=== PATIENT | female | born 1935 | race Caucasian/White ===

== ENCOUNTER → 2020-05-22 12:02 | Outpatient (BNVA) | payer MEDICARE, OTHER, SELFPAY | PROVIDERS: PCP Urology; Visit Provider Emergency Medicine | DX: S62.303A Unspecified fracture of third metacarpal bone, left hand, initial encounter for closed fracture (principal); X58.XXXA Exposure to other specified factors, initial encounter | CPT/HCPCS: 73130 ==

== ENCOUNTER → 2020-05-24 15:58 | Outpatient (BNVA) | payer MEDICARE, MEDICAID, SELFPAY | PROVIDERS: PCP Urology; Referring Provider Emergency Medicine; Visit Provider Specialist | DX: S62.303A Unspecified fracture of third metacarpal bone, left hand, initial encounter for closed fracture (principal); X58.XXXA Exposure to other specified factors, initial encounter | CPT/HCPCS: 73130 ==

== ENCOUNTER 2020-07-06 17:38 | Outpatient (CLI) | payer MEDICARE, MEDICAID, SELFPAY ==
--- NOTE | 2020-07-06 17:46 | XRR_ITS ---
PROCEDURE INFORMATION: Exam: XR Right Hip with Pelvis when Performed Exam date and time: 07/06/2020 5:55 PM Age: 85 years old Clinical indication: Hip pain; Right hip; Additional info: M25.559 - pain in unspecified hip TECHNIQUE: Imaging protocol: XR Right hip with pelvis when performed. Views: 1 view. Total images: 3 COMPARISON: No relevant prior studies available. FINDINGS: Bones/joints: No visible fracture, subluxation, or dislocation. Mild primary osteoarthritis of the hips. Degenerative disease and degenerative disc disease of the visualized lumbosacral spine with scoliosis. Osteopenia/osteoporosis. Soft tissues: Unremarkable for age. Vasculature: Arteriosclerosis. XR/XR hip RT 2-3V wo/w pel* [id number] IMPRESSION: Nonacute.
== END 2020-07-06 17:39 | disposition home or self-care (01) ==
LOC: RAD 17:40
PROVIDERS: PCP Urology; Visit Provider Nurse Practitioner Family
DX: M25.551 Pain in right hip (principal)
CPT/HCPCS: 73502

== ENCOUNTER → 2021-04-01 15:39 | Outpatient (BNVA) | payer MEDICARE, MEDICAID, SELFPAY | PROVIDERS: PCP Urology; Visit Provider Nurse Practitioner Family | DX: R60.9 Edema, unspecified (principal); M79.641 Pain in right hand; M25.531 Pain in right wrist; M19.031 Primary osteoarthritis, right wrist | CPT/HCPCS: 73110; 73130; 84550 ==

== ENCOUNTER 2021-04-05 11:14 | Emergency (ER) | payer MEDICARE, MEDICAID, SELFPAY ==
[2021-04-05 11:35] VITALS: BP 153/83; PULSE 60; RESP 18; TEMP 36.8; O2SAT 97
--- NOTE | 2021-04-05 11:44 | XRR_ITS ---
PROCEDURE INFORMATION: Exam: XR Right Hand Exam date and time: 04/05/2021 11:44 AM Age: 85 years old Clinical indication: Injury or trauma; Swelling (edema); Injury details: Patient is a 85-year-old female comes to the ED with right hand pain and swelling. Patient has a history of rheumatoid arthritis. Patient had a fall approximately 1 week ago. She tripped and lost her balance fell forward and used her right hand to help brace herself. ; Additional info: Right hand swelling and pain after fall TECHNIQUE: Imaging protocol: XR Right hand. Views: 3 or more views. COMPARISON: CR XR hand RT min 3V* [id number] 04/01/2021 3:48 PM FINDINGS: Bones/joints: There is a fracture through the left 5th metacarpal head extending to the MCP joint. No dislocation. There is joint space narrowing of the left 2nd through 4th PIP joints. There is subluxation at the left 3rd PIP joint with gull wing formation and central erosion in the left 3rd proximal phalanx. There is also joint space narrowing in the left 2nd and 5th DIP joints and at the left 1st CMC joint. There is erosive change through the distal left radius. Soft tissues: There is soft tissue swelling of the left 2nd through 5th digits. XR/XR hand RT min 3V* [id number] IMPRESSION: There is a fracture through the left 5th metacarpal head extending to the MCP joint. 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
--- NOTE | 2021-04-05 12:04 | W.ED.EXTPRO ---
HPI - Extremity Problem General: Chief complaint: Extremity Injury, Upper Stated complaint: RIGHT HAND INJURY/SWELLING PAIN Time Seen by Provider: 04/05/21 11:45 History of Present Illness: HPI Narrative: Patient is a 85-year-old female comes to the ED with right hand pain and swelling. Patient has a history of rheumatoid arthritis. Patient had a fall approximately 1 week ago. She tripped and lost her balance fell forward and used her right hand to help brace herself. Patient did not have much pain after fall but a couple days later started developing right hand pain and swelling. The pain and swelling has continued to get worse. She rates the pain a 10 out of 10 and is unable to move her right hand and fingers due to pain. She is only taking some Tylenol to help with pain. Associated symptoms: Deny chest pain, fever(s) or rash Review of Systems Const: Denies: fever(s), chills or fatigue Eyes: Denies: change in vision or eye discomfort ENMT: Denies: throat pain, odynophagia, nasal discharge or nasal congestion Card: Denies: chest pain, palpitations, edema, swelling of feet/ankles, dyspnea on exertion or orthopnea Resp: Denies: dyspnea, productive cough or non-productive cough GI: Denies: abdominal pain, nausea, vomiting, diarrhea, constipation or hematochezia : Denies: flank pain, dysuria or hematuria Musc: Reports: extremity pain (Right hand), extremity swelling (Right hand) and limited range of motion (Fingers of right hand); Denies: neck pain or back pain Skin/Breast: Denies: rash or new lesions Neuro: Denies: headache(s), numbness in extremities or weakness in extremities PFS ED PFSH: Medical History CHF (congestive heart failure) Colon cancer remission 1985 Hypertension RA (rheumatoid arthritis) Type 2 diabetes mellitus Family History Daughter Hypertension Denies family history of Dementia Social History Alcohol intake: never Physical Exam Const: COMMON NORMALS: no acute distress, patient oriented x3 and alert HENMT: COMMON NORMALS: normocephalic HEAD & SCALP: normocephalic MOUTH: Normal oral and palatal mucosa present THROAT: posterior oropharynx normal and uvula midline Neck/C-Spine: COMMON NORMALS: supple GENERAL: Yes normal visual inspection Resp: COMMON NORMALS: normal respiratory effort, No retractions, No use of accessory muscles and clear to auscultation bilaterally AUSCULTATION: clear to auscultation bilaterally Cardio: COMMON NORMALS: regular rate, regular rhythm, S1 normal heart sound present, S2 normal heart sound present, No gallops present (Cardio), No clicks present (Cardio), No murmurs present (Cardio) and Peripheral pulses 2+ throughout RATE: regular rate RHYTHM: regular rhythm HEART SOUNDS: S1 normal heart sound present and S2 normal heart sound present PERIPHERAL PULSES: Peripheral pulses 2+ throughout GI: COMMON NORMALS: Normal to inspection, nondistended, normoactive bowel sounds present, Soft to palpation, non-tender and no masses PALPATION: Yes Soft to palpation : COMMON NORMALS: Yes no CVA tenderness BLADDER/KIDNEY EXAM: Yes no CVA tenderness Back/Pelvis: COMMON NORMALS: no CVA tenderness Extremity: RIGHT UPPER EXTREMITY: Yes hand & digits Right hand and digits: Yes inspection (Erythema and significant swelling of right hand and digits), Yes palpation (Tenderness throughout right hand), Yes ROM exam (Limited due to pain) and Yes neurovascular exam (Intact) OTHER: Right hand findings suggestive of gout versus fractures. Neuro: COMMON NORMALS: patient oriented x3 and moves all extremities SENSORIUM/ORIENTATION: Yes alert Skin: GENERAL SKIN EXAM: dry skin Course Vital Signs: Vital signs: Vital Signs Temperature 98 F 04/05/21 13:40 Pulse Rate 60 04/05/21 13:40 Respiratory Rate 16 04/05/21 13:40 Blood Pressure 164/69 04/05/21 13:40 Pulse Oximetry 97 04/05/21 13:40 MDM - Extremity (Nontraumatic) MDM Narrative: Medical decision making narrative: Patient is an 85-year-old female comes to the ED with right hand swelling and pain. Patient had a fall approximately 10 days ago and has had increased right hand pain and swelling. She was seen at [facility] in [place] for same complaint and they performed an x-ray of patient's right hand and wrist and no acute fractures were seen. They checked her uric acid level there and it was elevated at 9.2 April 01. She was diagnosed with possible gout and discharged home. Patient is still having pain and swelling, so she came to the ED for reevaluation. Her right hand has the appearance of gout with swelling, erythema, warmth and tenderness on the dorsal aspect of hand. Denies any reinjury right hand. X-ray of right hand was done here in the ED and I evaluated x-ray and compared it to the x-ray done on April 01 and I saw no acute fractures or change comparing April 01 x-ray with today's x-ray. Patient was discharged and diagnosed with gout. She was sent home with a prescription for dose of colchicine and hydrocodone for pain. The radiology report came back and show that a fracture to the fifth metacarpal head was seen. Today 04/06/21, I contacted Veronica Castellanos and told her about the fracture that was seen on the x-ray report. I told patient that she will need to have an ulnar gutter splint placed. She is going to contact [facility] in [place] to see if they performed the splint procedure, and if not they were told to come here to the ED for splint placement. I called Veronica Castellanos back approximately 45 minutes after first conversation to check and see if they found out if [facility] can do splint placement. She said the [facility] in [place] could apply the splint and they will go there today to get splint applied. I also informed Veronica Castellanos that I placed an order with case management for patient be referred to orthopedic doctor for reevaluation of metacarpal fracture. Patient understood and agreed with plan. Imaging Data^: Xray Ortho: Attestation: I personally reviewed and interpreted this imaging study as follows: My impression: Right hand x-ray-no acute fracture seen. Pending final radiology report. Radiologist's impression: [id number] [place], [place] [address]FLmo ReportSigned with Addenda Patient: Bere Castellanos #: [id number]: 6Acct#:[id number]/Sex: 85 / FADM Date: 04/05/21Loc: ERRoom/Bed:Attending Dr: Ordering Provider/Ordering MD: Dominik De Jesus Date of Service: 04/05/21 Procedure(s): XR hand RT min 3V* [id number] Accession Number(s): [id number] Report Number: [id number] ADDENDUM XR/XR hand RT min 3V* [id number] CORRECTION: These are images of the RIGHT hand. Study was mislabeled as left hand There is a fracture of the RIGHT 5th metacarpal head which is unchanged when compared with 04/01/2021. Deformity of the right 2nd metacarpal head is also unchanged. Addendum Dictated By: Karl Lopez MDAddendum Signed By: Karl Lopez MDSigned Date/Time:04/05/21 1443Addendum Cosigned By: PROCEDURE INFORMATION: Exam: XR Right Hand Exam date and time: 04/05/2021 11:44 AM Age: 85 years old Clinical indication: Injury or trauma; Swelling (edema); Injury details: Patient is a 85-year-old female comes to the ED with right hand pain and swelling. Patient has a history of rheumatoid arthritis. Patient had a fall approximately 1 week ago. She tripped and lost her balance fell forward and used her right hand to help brace herself. ; Additional info: Right hand swelling and pain after fall TECHNIQUE: Imaging protocol: XR Right hand. Views: 3 or more views. COMPARISON: CR XR hand RT min 3V* [id number] 04/01/2021 3:48 PM FINDINGS: Bones/joints: There is a fracture through the left 5th metacarpal head extending to the MCP joint. No dislocation. There is joint space narrowing of the left 2nd through 4th PIP joints. There is subluxation at the left 3rd PIP joint with gull wing formation and central erosion in the left 3rd proximal phalanx. There is also joint space narrowing in the left 2nd and 5th DIP joints and at the left 1st CMC joint. There is erosive change through the distal left radius. Soft tissues: There is soft tissue swelling of the left 2nd through 5th digits. XR/XR hand RT min 3V* [id number] IMPRESSION: There is a fracture through the left 5th metacarpal head extending to the MCP joint. 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 Dictated By:Karl Lopezigned By:Karl Lopez MDSigned Date/Time:04/05/21 1441DD/ 1439 Discharge Plan Discharge Patient Disposition: Home Clinical Impression: Fracture of metacarpal Qualifiers: Encounter type: initial encounter Metacarpal bone: fifth Fracture type: closed Metacarpal location: base Fracture alignment: nondisplaced Laterality: right Qualified Code(s): S62.346A - Nondisplaced fracture of base of fifth metacarpal bone, right hand, initial encounter for closed fracture Acute gout of hand Qualifiers: Gout etiology: unspecified cause Laterality: right Qualified Code(s): M10.9 - Gout, unspecified Condition: Stable Prescriptions: No Action Xarelto 20 mg tablet 20 mg PO DAILY RF: 0 clonazepam 0.5 mg tablet 1 mg PO BEDTIME PRN (Reason: insomnia) RF: 0 pantoprazole 40 mg tablet,delayed release (DR/EC) 40 mg PO BID RF: 0 mecobalamin (vitamin B12) 1,000 mcg tablet,disintegrating 1,000 mcg sublingual DAILY RF: 0 insulin asp prt-insulin aspart [Novolog Mix 70-30 U-100 Insuln] 100 unit/mL (70-30) solution 20 unit SUBCUT DAILY RF: 0 allopurinol 100 mg tablet 200 mg PO DAILY Qty: 60 RF: 0 furosemide 40 mg tablet 40 mg PO DAILY MDD see pharmacy comment RF: 0 baclofen 10 mg tablet 10 mg PO TID PRN (Reason: Pain) RF: 0 Nyamyc 100,000 unit/gram powder 1 applic TOPICAL TID RF: 0 Discharge Orders: Discharge ED (Routine); Ordered 04/05/21 Ordered By: Dominik De Jesus Referrals: Juan Carlos Hubbard MD [Primary Care Provider] - Discharge Diet: Regular Discharge Activity: Increase activity as tolerated Patient Instructions: Acute Gouty Arthritis (ED), Opioid Safety Activity Restrictions/Additional Instructions: Follow-up with medical provider as directed in 7 to 10 days reevaluation. Take the prescribed colchicine approximately 1 hour after the initial dose of colchicine here in the ED. Take medications as prescribed. Continue taking your prescribed steroid daily tomorrow but continue watching blood sugars closely. Return to the ER or your medical provider if condition worsens. Please read and understand discharge instructions. Thank you for choosing [facility] for your healthcare needs today. Please realize this is an emergency room and that we are providing you with a medical screening exam and this may not be complete and all inclusive of all the testing and or work up that you may need to determine your ailment or severity of your illness. It is very important that you follow up as instructed or that you return to the Emergency Department should you have concerns or if your condition changes or worsens in any way. Coding Level of Care Code ED Stringing Machine Tender for Max Fwhermilo Exam Comprehensive
[2021-04-05 12:16] VITALS: BP 157/60; PULSE 60; RESP 18; TEMP 36.8; O2SAT 98
[2021-04-05 12:17] VITALS: PULSE 60
[2021-04-05] MEDS: HYDROcodone-acetaminophen 5-325 mg Tablet 1 TAB PO (12:23)
[2021-04-05 13:04] VITALS: BP 156/61; PULSE 60; RESP 16; TEMP 36.5; O2SAT 96
[2021-04-05] MEDS: colchicine 0.6 mg Tablet 1.2 MG PO (13:38)
[2021-04-05 13:40] VITALS: BP 164/69; PULSE 60; RESP 16; TEMP 36.6; O2SAT 97
--- NOTE | 2021-04-06 10:00 | DCPLANNER ---
physician relations manager had message to schedule a follow up appointment for patient with ortho. physician relations manager called the ortho clinic, spoke with Debi, gave clinic patients information. physician relations manager was told that patients information would be printed and reviewed. Clinic will call patient with appointment information.
--- NOTE | 2021-04-07 15:32 | DCPLANNER ---
Patient had a follow up appointment scheduled for 04.07.[address] Ramirez at [facility] - patient did attend appointment.
== END 2021-04-05 13:47 | disposition home or self-care (01) ==
PROVIDERS: Emergency Provider Physician Assistant; PCP Urology
DX: S62.346A Nondisplaced fracture of base of fifth metacarpal bone, right hand, initial encounter for closed fracture (principal); M10.9 Gout, unspecified; Z79.4 Long term (current) use of insulin; I11.0 Hypertensive heart disease with heart failure; I50.9 Heart failure, unspecified; Z85.038 Personal history of other malignant neoplasm of large intestine; E11.9 Type 2 diabetes mellitus without complications; W19.XXXA Unspecified fall, initial encounter
CPT/HCPCS: 73130; 96372; 99283; J2930

== ENCOUNTER 2021-04-07 11:51 | Outpatient (CLI) | payer MEDICARE, MEDICAID, SELFPAY | END 2021-04-07 11:52 | disposition home or self-care (01) | LOC: SPT 11:52 | PROVIDERS: PCP Urology; Visit Provider Orthopaedic Surgery | DX: Z46.89 Encounter for fitting and adjustment of other specified devices (principal); M19.041 Primary osteoarthritis, right hand; M25.441 Effusion, right hand | CPT/HCPCS: L3908 ==

== ENCOUNTER → 2021-04-25 07:39 | Outpatient (BNVA) | payer MEDICARE, MEDICAID, SELFPAY | PROVIDERS: PCP Urology; Visit Provider Nurse Practitioner Family | DX: M10.9 Gout, unspecified (principal) | CPT/HCPCS: 84550 ==

== ENCOUNTER → 2021-05-16 14:42 | Outpatient (BNVA) | payer MEDICARE, MEDICAID, SELFPAY | PROVIDERS: PCP Urology; Visit Provider Nurse Practitioner Family | DX: M10.9 Gout, unspecified (principal) | CPT/HCPCS: 84550 ==

== ENCOUNTER → 2021-05-30 15:25 | Outpatient (BNVA) | payer MEDICARE, MEDICAID, SELFPAY | PROVIDERS: PCP Urology; Visit Provider Family Medicine | DX: R30.0 Dysuria (principal); E11.65 Type 2 diabetes mellitus with hyperglycemia; Z79.4 Long term (current) use of insulin; M79.641 Pain in right hand; I50.9 Heart failure, unspecified; M10.9 Gout, unspecified | CPT/HCPCS: 81000 ==

== ENCOUNTER → 2021-06-07 11:18 | Outpatient (BNVA) | payer MEDICARE, MEDICAID, SELFPAY | PROVIDERS: PCP Urology; Visit Provider Nurse Practitioner Family | DX: S62.303A Unspecified fracture of third metacarpal bone, left hand, initial encounter for closed fracture (principal); X58.XXXA Exposure to other specified factors, initial encounter; R30.0 Dysuria; M10.9 Gout, unspecified; R93.89 Abnormal findings on diagnostic imaging of other specified body structures; R39.9 Unspecified symptoms and signs involving the genitourinary system; Z68.41 Body mass index [BMI] 40.0-44.9, adult | CPT/HCPCS: 73130; 81000; 84550 ==

== ENCOUNTER → 2021-06-24 11:11 | Outpatient (BNVA) | payer MEDICARE, SELFPAY | PROVIDERS: PCP Urology; Visit Provider Nurse Practitioner Family | DX: R82.90 Unspecified abnormal findings in urine (principal) | CPT/HCPCS: 81000; 87077; 87086; 87184 ==

== ENCOUNTER → 2021-07-01 10:02 | Outpatient (BNVA) | payer MEDICARE, SELFPAY | PROVIDERS: PCP Urology; Visit Provider Nurse Practitioner Family | DX: E55.9 Vitamin D deficiency, unspecified (principal); I10 Essential (primary) hypertension; E11.65 Type 2 diabetes mellitus with hyperglycemia; Z79.4 Long term (current) use of insulin; E53.8 Deficiency of other specified B group vitamins; M10.9 Gout, unspecified | CPT/HCPCS: 80053; 80061; 82306; 82607; 83036; 84550; 85025 ==

== ENCOUNTER 2021-07-13 03:04 | Outpatient (RCR) | payer MEDICARE, SELFPAY | END 2021-07-15 23:59 | disposition home or self-care (01) | LOC: GPT 03:04 | PROVIDERS: PCP Urology; Referring Provider Orthopaedic Surgery; Visit Provider Orthopaedic Surgery | DX: M25.511 Pain in right shoulder (principal) | CPT/HCPCS: 97110; 97162 ==

== ENCOUNTER 2021-07-16 06:00 | Outpatient (RCR) | payer MEDICARE, SELFPAY | END 2021-08-15 23:59 | disposition home or self-care (01) | LOC: GPT 06:00 | PROVIDERS: PCP Urology; Referring Provider Orthopaedic Surgery; Visit Provider Orthopaedic Surgery | DX: M25.511 Pain in right shoulder (principal) | CPT/HCPCS: 97110; 97140; G0283 ==

== ENCOUNTER → 2021-07-27 11:16 | Outpatient (BNVA) | payer MEDICARE, SELFPAY | PROVIDERS: PCP Urology; Visit Provider Family Medicine | DX: N39.0 Urinary tract infection, site not specified (principal); R35.0 Frequency of micturition | CPT/HCPCS: 81000 ==

== ENCOUNTER → 2021-08-04 14:49 | Outpatient (BNVA) | payer MEDICARE, SELFPAY | PROVIDERS: PCP Urology; Visit Provider Nurse Practitioner Family | DX: R05.9 Cough, unspecified (principal); J02.9 Acute pharyngitis, unspecified | CPT/HCPCS: 87635 ==

== ENCOUNTER 2021-09-05 10:10 | Emergency (ER) | payer MEDICARE, SELFPAY ==
[2021-09-05 10:17] VITALS: BP 183/75; PULSE 60; RESP 18; TEMP 36.8; O2SAT 98; BMI 41.0
--- NOTE | 2021-09-05 10:22 | XR_ITS ---
WS: [id number] Exam: XR hip RT 2-3V wo/w pel* [id number] Date/Time of Exam: 09/05/2021 10:23 AM Reason For Exam: pain No acute fracture or dislocation. Osteopenia. Mild degenerative thinning of the joint compartment. XR/XR hip RT 2-3V wo/w pel* [id number] IMPRESSION: 1. Degenerative changes and osteopenia. 2. No fracture or dislocation.
--- NOTE | 2021-09-05 10:22 | XR_ITS ---
WS: [id number] Exam: XR lumbar spine 2-3V* [id number] Date/Time of Exam: 09/05/2021 10:23 AM Reason For Exam: pain There is a compression fracture of the upper end plate of L1 with about 30% loss of vertebral height. Fracture age is indeterminate. No other obvious fracture. There is levoscoliosis noted. Facet arthro laxmi at all levels. Mild spondylosis. Aortoiliac atherosclerosis. XR/XR lumbar spine 2-3V* [id number] IMPRESSION: 1. Compression fracture of the upper endplate of L1 with about 30% loss of vert ebral height and no obvious retropulsion. Fracture age is indeterminate. 2. Moderately advanced degenerative facet change and levoscoliosis.
--- NOTE | 2021-09-05 10:22 | W.ED.BACK ---
HPI - Back Pain/Injury General: Chief Complaint: Back Pain/Injury Stated Complaint: BACK PAIN INCREASED WITH MOVEMENT Time Seen by Provider: 09/05/21 10:18 Source: patient Mode of arrival: ambulatory History of Present Illness: 86-year-old female presents emergency room with complaint of back pain of the last couple of days progressively worsening she has difficult time standing and walking. She lives at home alone. She no trauma. Patient has not had any urinary retention or fecal incontinence. Normal sensation lower extremities but she does have pain in the lower legs. MD elicited complaint: back pain Onset (ago): day(s) Timing: constant Severity: severe Quality: sharp Location: lumbar spine Radiation: left upper leg and right upper leg Exacerbating factors: sitting upright and walking Relieving factors: none and supine Associated symptoms: Deny abdominal pain, arthralgias, chills, change in bowel habits, difficulty walking, dysuria, fatigue, fecal incontinence, fever(s), hematuria, myalgias, nausea, numbness, syncope, tingling/numbness/burning, urinary frequency, urinary urgency, vomiting or weakness Review of Systems Const: Denies: fever(s), chills or fatigue ENMT: Denies: throat pain, ear or mastoid pain, nasal discharge or nasal congestion Card: Denies: syncope Resp: Denies: dyspnea, productive cough or non-productive cough GI: Denies: abdominal pain, nausea, vomiting, fecal incontinence or change in bowel habits : Denies: dysuria, urinary urgency or hematuria Skin/Breast: Denies: rash or pruritus Neuro: Denies: difficulty walking PFSH ED PFSH: Medical History Anemia CHF (congestive heart failure) Colon cancer remission 1985 Hypertension RA (rheumatoid arthritis) Type 2 diabetes mellitus Family History Daughter Hypertension Denies family history of Dementia Social History Smoking and tobacco status: never smoked Alcohol intake: never Physical Exam Const: COMMON NORMALS: no acute distress GENERAL APPEARANCE: cooperative and comfortable ORIENTATION/CONSCIOUSNESS: Yes awake, Yes oriented to person, Yes oriented to place and Yes oriented to time HENMT: COMMON NORMALS: normocephalic, atraumatic and hearing grossly normal bilaterally HEAD & SCALP: normocephalic and atraumatic Neck/C-Spine: COMMON NORMALS: no JVD Resp: COMMON NORMALS: normal respiratory effort, No retractions, No use of accessory muscles and clear to auscultation bilaterally AUSCULTATION: clear to auscultation bilaterally Cardio: COMMON NORMALS: no JVD, regular rate, regular rhythm and No murmurs present (Cardio) RATE: regular rate RHYTHM: regular rhythm GI: COMMON NORMALS: Soft to palpation and No hepatosplenomegaly present AUSCULTATION: Yes normoactive bowel sounds PALPATION: Yes Soft to palpation, No Tenderness to palpation present (GI), No Guarding due to palpation present (GI) and Yes No hepatosplenomegaly present Extremity: COMMON NORMALS: normal to inspection, capillary refill normal, no clubbing, cyanosis or edema, no calf tenderness and no pedal edema Neuro: SENSORIUM/ORIENTATION: Yes oriented to person, Yes oriented to place and Yes oriented to time Skin: COMMON NORMALS: no rashes or lesions noted GENERAL SKIN EXAM: no rashes or lesions noted Course Vital Signs: Vital signs: Vital Signs Temperature 98.2 F 09/05/21 10:17 Pulse Rate 63 09/05/21 12:58 Respiratory Rate 18 09/05/21 12:58 Blood Pressure 183/75 09/05/21 12:58 Pulse Oximetry 98 09/05/21 12:58 MDM - Back Pain/Injury Medical Decision Making L1 compression fracture. Patient would ask like to go the snf but at this point really cannot get her qualified at most we can do is an observation admission for pain control. After discussing things with her we ultimately went with a TSLO brace as well as arranging for home health. Will recheck her condition with your primary care doctor within the next week. Any worsening or change return. Physical therapy demonstrated how to use T SLO brace and walker. Patient able to ambulate with a walker at the bedside without difficulty. Medical Records I reviewed the patient's medical records. Labs I reviewed the patient's lab results. Radiology Impressions Hip/Pelvis X-Ray 09/05/21 10:22 IMPRESSION: 1. Degenerative changes and osteopenia. 2. No fracture or dislocation. Lumbar Spine X-Ray 09/05/21 10:22 IMPRESSION: 1. Compression fracture of the upper endplate of L1 with about 30% loss of vertebral height and no obvious retropulsion. Fracture age is indeterminate. 2. Moderately advanced degenerative facet change and levoscoliosis. Discharge Plan Discharge Patient Disposition: Home Clinical Impression: Compression fx, lumbar spine Condition: Stable Prescriptions: New hydrocodone-acetaminophen 7.5-325 mg tablet 1 tab PO Q6H PRN (Reason: pain) Qty: 30 0RF No Action mecobalamin (vitamin B12) 1,000 mcg tablet,disintegrating 1,000 mcg sublingual DAILY 0RF Rx Instructions: place tablet under tongue and allow to dissolve for at least30 secs before swallowing (DME) cock up splint See Rx Instructions .Route .MEDSUPPLY Qty: 1 0RF Rx Instructions: As directed (DME) blood-glucose meter Kit See Rx Instructions .Route Qty: 1 0RF Rx Instructions: As directed probenecid 500 mg tablet 500 mg PO BID 0RF trazodone 50 mg tablet 25 mg PO DAILY Qty: 30 0RF Xarelto 20 mg tablet See Rx Instructions .ROUTE .COMPLEX Qty: 90 3RF Dose Instruction: TAKE ONE TABLET BY MOUTH EVERY EVENING Rx Instructions: TAKE ONE TABLET BY MOUTH EVERY EVENING insulin asp prt-insulin aspart [Novolog Mix 70-30 U-100 Insuln] 100 unit/mL (70-30) solution 22 unit SUBCUT DAILY Qty: 10 0RF hydrocodone-acetaminophen 5-325 mg tablet 1 tab PO Q6H PRN (Reason: pain) 5 Days Qty: 20 0RF pantoprazole 40 mg tablet,delayed release (DR/EC) See Rx Instructions .ROUTE .COMPLEX Qty: 60 11RF Dose Instruction: TAKE ONE TABLET BY MOUTH TWICE A DAY FOR STOMACH; NEW HIGHER DOSAGE OF 10.14.19 Rx Instructions: TAKE ONE TABLET BY MOUTH TWICE A DAY FOR STOMACH; NEW HIGHER DOSAGE OF 10.14.19 baclofen 10 mg tablet 10 mg PO TID PRN (Reason: Pain) Qty: 90 11RF Nyamyc 100,000 unit/gram powder See Rx Instructions .ROUTE .COMPLEX Qty: 60 3RF Dose Instruction: APPLY TOPICALLY THREE TIMES A DAY TO SKIN FOLD AREAS FOR YEAST INFECTIONS Rx Instructions: APPLY TOPICALLY THREE TIMES A DAY TO SKIN FOLD AREAS FOR YEAST INFECTIONS meloxicam 15 mg tablet 15 mg PO DAILY Qty: 30 5RF cholecalciferol (vitamin D3) 1,250 mcg (50,000 unit) capsule 50,000 unit PO .weekly 56 Days Qty: 8 0RF furosemide 40 mg tablet See Rx Instructions .ROUTE .COMPLEX Qty: 30 3RF Dose Instruction: TAKE ONE TABLET BY MOUTH ONCE DAILY Rx Instructions: TAKE ONE TABLET BY MOUTH ONCE DAILY Discharge Orders: Discharge ED (Routine); Ordered 09/05/21 Ordered By: Travis Larsen Referrals: Juan Carlos Hubbard MD [Physician] - Discharge Diet: Usual diet Discharge Activity: Limit activity as instructed Activity Restrictions/Additional Instructions: Case management make arrangements for you to follow-up with Dr. Ramirez for the compression fracture. Also make arrangements for home health. Coding Level of Care Code ED Commercial Loan Collection Officer for Max Gibson
--- NOTE | 2021-09-05 11:01 | PC.NURSE ---
Patient arrived to Ed with main complaint of bilateral back pain. Patient stated that pain is a 10 on a scale from 1 to 10. Patient also stated she has mild lower extremity weakness bilaterally. Patient does not appear to be in any form of respiratory distress. Patient is currently in X-ray. continue care
[2021-09-05 11:08] VITALS: BP 183/75; PULSE 63; RESP 18; O2SAT 98
[2021-09-05 12:58] VITALS: BP 183/75; PULSE 63; RESP 18; O2SAT 98
--- NOTE | 2021-09-05 12:59 | PC.NURSE ---
PATIENT MOVED TO -4 TO AWAIT FOR POV FOR DISCHARGE.
--- NOTE | 2021-09-05 14:05 | DCPLANNER ---
Addendum entered by Tamica Pereyra 09/16/21 13:48: Patient had an appointment scheduled but patient cancelled the appointment. Original Note: apparel manager had message to schedule a follow up appointment for patient with ortho. apparel manager called the ortho clinic, spoke with Tiffany, gave clinic patients information. apparel manager was told that patients information would be printed and reviewed. Clinic will call patient with appointment information.
== END 2021-09-05 14:05 | disposition home or self-care (01) ==
PROVIDERS: Emergency Provider Family Medicine
DX: S32.018A Other fracture of first lumbar vertebra, initial encounter for closed fracture (principal); Z79.4 Long term (current) use of insulin; I11.0 Hypertensive heart disease with heart failure; I50.9 Heart failure, unspecified; Z85.038 Personal history of other malignant neoplasm of large intestine; E11.9 Type 2 diabetes mellitus without complications; X58.XXXA Exposure to other specified factors, initial encounter
CPT/HCPCS: 72100; 73502; 97116; 97760; 99283; L0456

== ENCOUNTER → 2021-10-10 10:13 | Outpatient (BNVA) | payer MEDICARE, SELFPAY | PROVIDERS: Visit Provider Nurse Practitioner Family | DX: R82.90 Unspecified abnormal findings in urine (principal) | CPT/HCPCS: 81003; 87086 ==

== ENCOUNTER → 2021-10-26 15:48 | Outpatient (BNVA) | payer MEDICARE, SELFPAY | PROVIDERS: Visit Provider Nurse Practitioner Family | DX: N39.0 Urinary tract infection, site not specified (principal) | CPT/HCPCS: 81003 ==

== ENCOUNTER → 2021-12-22 11:02 | Outpatient (BNVA) | payer MEDICARE, SELFPAY | PROVIDERS: Visit Provider Family Medicine | DX: R30.0 Dysuria (principal) | CPT/HCPCS: 81003 ==

== ENCOUNTER → 2022-01-09 11:20 | Outpatient (BNVA) | payer MEDICARE, SELFPAY | PROVIDERS: Visit Provider Family Medicine | DX: E11.65 Type 2 diabetes mellitus with hyperglycemia (principal); Z79.4 Long term (current) use of insulin | CPT/HCPCS: 83036 ==

== ENCOUNTER → 2022-02-22 09:20 | Outpatient (BNVA) | payer MEDICARE, SELFPAY | PROVIDERS: Visit Provider Family Medicine | DX: D64.9 Anemia, unspecified (principal); R82.90 Unspecified abnormal findings in urine; N39.0 Urinary tract infection, site not specified; G47.33 Obstructive sleep apnea (adult) (pediatric); E11.65 Type 2 diabetes mellitus with hyperglycemia; Z79.4 Long term (current) use of insulin; I50.9 Heart failure, unspecified | CPT/HCPCS: 81003; 85025; 87077; 87086; 87184 ==

== ENCOUNTER → 2022-05-01 11:09 | Outpatient (BNVA) | payer MEDICARE, SELFPAY | PROVIDERS: Visit Provider Family Medicine | DX: Z23 Encounter for immunization (principal); R35.0 Frequency of micturition; E11.65 Type 2 diabetes mellitus with hyperglycemia; Z79.4 Long term (current) use of insulin; L03.90 Cellulitis, unspecified; N39.0 Urinary tract infection, site not specified; M10.9 Gout, unspecified | CPT/HCPCS: 81003; 83036; 84550; 85025 ==

== ENCOUNTER → 2022-08-28 14:45 | Outpatient (BNVA) | payer MEDICARE, SELFPAY | PROVIDERS: Visit Provider Family Medicine | DX: E11.65 Type 2 diabetes mellitus with hyperglycemia (principal); Z79.4 Long term (current) use of insulin; B37.2 Candidiasis of skin and nail; I10 Essential (primary) hypertension | CPT/HCPCS: 83036 ==

== ENCOUNTER → 2022-09-20 17:07 | Outpatient (BNVA) | payer MEDICARE, SELFPAY | PROVIDERS: Visit Provider Family Medicine | DX: I11.0 Hypertensive heart disease with heart failure (principal); I50.9 Heart failure, unspecified | CPT/HCPCS: 80053 ==

== ENCOUNTER → 2023-01-29 10:13 | Outpatient (BNVA) | payer MEDICARE, SELFPAY | PROVIDERS: PCP Family Medicine; Visit Provider Family Medicine | DX: E11.9 Type 2 diabetes mellitus without complications (principal) | CPT/HCPCS: 83036 ==

== ENCOUNTER → 2023-02-22 10:32 | Outpatient (BNVA) | payer MEDICARE, SELFPAY | PROVIDERS: PCP Family Medicine; Visit Provider Family Medicine | DX: R41.82 Altered mental status, unspecified (principal) | CPT/HCPCS: 81003; 87077; 87086; 87184 ==

== ENCOUNTER → 2023-04-16 10:08 | Outpatient (BNVA) | payer MEDICARE, SELFPAY | PROVIDERS: PCP Family Medicine; Visit Provider Family Medicine | DX: M10.9 Gout, unspecified; G47.00 Insomnia, unspecified | CPT/HCPCS: 80053; 84550 ==

== ENCOUNTER → 2023-04-20 13:54 | Outpatient (BNVA) | payer MEDICARE, SELFPAY | PROVIDERS: PCP Family Medicine; Visit Provider Nurse Practitioner Family | DX: M54.50 Low back pain, unspecified (principal); M25.552 Pain in left hip; N39.0 Urinary tract infection, site not specified; R41.82 Altered mental status, unspecified | CPT/HCPCS: 81000 ==

== ENCOUNTER → 2023-05-16 09:26 | Outpatient (BNVA) | payer MEDICARE, SELFPAY | PROVIDERS: PCP Family Medicine; Visit Provider Family Medicine | DX: R06.02 Shortness of breath (principal); I48.20 Chronic atrial fibrillation, unspecified; I10 Essential (primary) hypertension; E11.65 Type 2 diabetes mellitus with hyperglycemia; Z79.4 Long term (current) use of insulin; G47.00 Insomnia, unspecified | CPT/HCPCS: 80048; 83036; 84439; 84443; 85025 ==

== ENCOUNTER → 2023-06-05 10:52 | Outpatient (BNVA) | payer MEDICARE, SELFPAY | PROVIDERS: PCP Family Medicine; Visit Provider Family Medicine | DX: R35.0 Frequency of micturition (principal) | CPT/HCPCS: 81003; 87077; 87086; 87184 ==

== ENCOUNTER → 2023-06-14 09:44 | Outpatient (BNVA) | payer MEDICARE, SELFPAY | PROVIDERS: PCP Family Medicine | DX: M10.9 Gout, unspecified (principal); R60.9 Edema, unspecified | CPT/HCPCS: 80048; 83880; 84550 ==

== ENCOUNTER → 2023-07-20 13:46 | Outpatient (BNVA) | payer MEDICARE, SELFPAY | PROVIDERS: PCP Family Medicine; Visit Provider Nurse Practitioner Family | DX: R31.9 Hematuria, unspecified (principal) | CPT/HCPCS: 81000 ==

== ENCOUNTER → 2023-08-14 15:30 | Outpatient (BNVA) | payer MEDICARE, SELFPAY | PROVIDERS: PCP Family Medicine; Visit Provider Nurse Practitioner Family | DX: M10.9 Gout, unspecified (principal) | CPT/HCPCS: 84550 ==

== ENCOUNTER → 2023-09-17 11:00 | Outpatient (BNVA) | payer MEDICARE, SELFPAY | PROVIDERS: PCP Family Medicine; Visit Provider Family Medicine | DX: M1A.0420 Idiopathic chronic gout, left hand, without tophus (tophi) (principal) | CPT/HCPCS: 84550 ==

== ENCOUNTER → 2023-10-17 09:40 | Outpatient (BNVA) | payer MEDICARE, SELFPAY | PROVIDERS: PCP Family Medicine; Visit Provider Family Medicine | DX: M10.9 Gout, unspecified (principal) | CPT/HCPCS: 84550 ==

== ENCOUNTER → 2023-12-24 10:54 | Outpatient (BNVA) | payer MEDICARE, SELFPAY | PROVIDERS: PCP Family Medicine; Visit Provider Nurse Practitioner Family | DX: R30.0 Dysuria (principal) | CPT/HCPCS: 81000; 87086 ==

== ENCOUNTER → 2024-01-04 10:06 | Outpatient (BNVA) | payer MEDICARE, SELFPAY | PROVIDERS: PCP Family Medicine; Visit Provider Nurse Practitioner Family | DX: R10.9 Unspecified abdominal pain (principal); C18.9 Malignant neoplasm of colon, unspecified; G89.29 Other chronic pain; Z85.038 Personal history of other malignant neoplasm of large intestine | CPT/HCPCS: 81000; 87086 ==

== ENCOUNTER → 2024-03-25 09:54 | Outpatient (BNVA) | payer MEDICARE, SELFPAY | PROVIDERS: PCP Family Medicine; Visit Provider Nurse Practitioner Family | DX: Z79.4 Long term (current) use of insulin (principal); E11.65 Type 2 diabetes mellitus with hyperglycemia | CPT/HCPCS: 80053; 82306; 82607; 83036; 84550; 85025 ==

== ENCOUNTER → 2024-03-31 13:32 | Outpatient (BNVA) | payer MEDICARE, SELFPAY | PROVIDERS: PCP Family Medicine; Visit Provider Nurse Practitioner Family | DX: K92.1 Melena (principal); E87.5 Hyperkalemia | CPT/HCPCS: 80053; 82378; 83540; 83550; 85025 ==

== ENCOUNTER → 2024-04-07 10:39 | Outpatient (BNVA) | payer MEDICARE, SELFPAY | PROVIDERS: PCP Family Medicine; Visit Provider Family Medicine | DX: R30.0 Dysuria (principal) | CPT/HCPCS: 81003 ==

== ENCOUNTER → 2024-04-30 10:54 | Outpatient (BNVA) | payer MEDICARE, SELFPAY | PROVIDERS: PCP Family Medicine; Visit Provider Nurse Practitioner Family | DX: E87.5 Hyperkalemia (principal); R79.9 Abnormal finding of blood chemistry, unspecified; M1A.0420 Idiopathic chronic gout, left hand, without tophus (tophi); M79.671 Pain in right foot; M19.071 Primary osteoarthritis, right ankle and foot; M77.31 Calcaneal spur, right foot; S90.851A Superficial foreign body, right foot, initial encounter; X58.XXXA Exposure to other specified factors, initial encounter | CPT/HCPCS: 73630; 80053; 84550 ==

== ENCOUNTER → 2024-07-02 13:28 | Outpatient (BNVA) | payer MEDICARE, SELFPAY | PROVIDERS: PCP Family Medicine; Visit Provider Family Medicine | DX: R35.0 Frequency of micturition (principal); R10.32 Left lower quadrant pain; E87.5 Hyperkalemia; K57.92 Diverticulitis of intestine, part unspecified, without perforation or abscess without bleeding | CPT/HCPCS: 80053; 81000; 85025; 86140 ==

== ENCOUNTER → 2024-07-24 08:30 | Outpatient (BNVA) | payer MEDICARE, SELFPAY | PROVIDERS: PCP Family Medicine; Visit Provider Nurse Practitioner Family | DX: Z79.899 Other long term (current) drug therapy (principal); N30.01 Acute cystitis with hematuria | CPT/HCPCS: 81000; 87086 ==

== ENCOUNTER → 2024-07-31 10:02 | Outpatient (BNVA) | payer MEDICARE, SELFPAY | PROVIDERS: PCP Family Medicine; Visit Provider Family Medicine | DX: N39.0 Urinary tract infection, site not specified (principal); E87.6 Hypokalemia; R79.82 Elevated C-reactive protein (CRP) | CPT/HCPCS: 80048; 86140 ==

== ENCOUNTER → 2024-09-24 10:06 | Outpatient (BNVA) | payer MEDICARE, SELFPAY | PROVIDERS: PCP Family Medicine; Visit Provider Family Medicine | DX: R30.0 Dysuria (principal); E55.9 Vitamin D deficiency, unspecified; E11.65 Type 2 diabetes mellitus with hyperglycemia; Z79.4 Long term (current) use of insulin; E53.8 Deficiency of other specified B group vitamins; E87.5 Hyperkalemia; R79.89 Other specified abnormal findings of blood chemistry | CPT/HCPCS: 80053; 81000; 82306; 82607; 83036; 87077; 87086; 87184 ==

== ENCOUNTER → 2024-11-13 11:33 | Outpatient (BNVA) | payer MEDICARE, SELFPAY | PROVIDERS: PCP Family Medicine; Visit Provider Family Medicine | DX: S82.031A Displaced transverse fracture of right patella, initial encounter for closed fracture (principal); W19.XXXA Unspecified fall, initial encounter | CPT/HCPCS: 73560; 73590 ==

== ENCOUNTER → 2024-11-17 10:17 | Outpatient (BNVA) | payer MEDICARE, SELFPAY | PROVIDERS: PCP Family Medicine; Visit Provider Orthopaedic Surgery | DX: S82.001A Unspecified fracture of right patella, initial encounter for closed fracture (principal); W06.XXXA Fall from bed, initial encounter | CPT/HCPCS: 73560; 99204 ==

== ENCOUNTER → 2025-01-13 14:00 | Outpatient (BNVA) | payer MEDICARE, SELFPAY | PROVIDERS: PCP Family Medicine; Visit Provider Family Medicine | DX: I10 Essential (primary) hypertension (principal); R79.89 Other specified abnormal findings of blood chemistry; I50.9 Heart failure, unspecified; E11.65 Type 2 diabetes mellitus with hyperglycemia; Z79.4 Long term (current) use of insulin; E55.9 Vitamin D deficiency, unspecified; E53.8 Deficiency of other specified B group vitamins; R60.9 Edema, unspecified; E87.5 Hyperkalemia | CPT/HCPCS: 80053; 82306; 82607; 83036; 83735; 84443; 85025 ==

== ENCOUNTER → 2025-01-29 10:36 | Outpatient (BNVA) | payer MEDICARE, SELFPAY | PROVIDERS: PCP Family Medicine; Visit Provider Family Medicine | DX: I51.7 Cardiomegaly (principal); R09.89 Other specified symptoms and signs involving the circulatory and respiratory systems; Z95.9 Presence of cardiac and vascular implant and graft, unspecified | CPT/HCPCS: 71045 ==

== ENCOUNTER → 2025-02-03 09:15 | Outpatient (BNVA) | payer MEDICARE, SELFPAY | PROVIDERS: PCP Family Medicine; Visit Provider Family Medicine | DX: E61.1 Iron deficiency (principal); D64.9 Anemia, unspecified | CPT/HCPCS: 82728; 83550; 84100; 85014; 85018 ==

== ENCOUNTER → 2025-02-19 09:46 | Outpatient (BNVA) | payer MEDICARE, SELFPAY | PROVIDERS: PCP Family Medicine; Visit Provider Family Medicine | DX: R30.0 Dysuria (principal); Z79.899 Other long term (current) drug therapy | CPT/HCPCS: 81000; 87086 ==

== ENCOUNTER 2025-03-03 11:00 | Oncology outpatient (recurring) (ONCR) | payer MEDICARE, SELFPAY ==
[2025-02-24] MEDS: iron sucrose 200 MG in sodium chloride 0.9% (100 ml) 100 ML IV (12:11)
[2025-03-03] MEDS: iron sucrose 200 MG in sodium chloride 0.9% (100 ml) 100 ML IV (11:27)
[2025-03-03 12:13] VITALS: BP 154/85; PULSE 61; RESP 18; TEMP 35.9; O2SAT 99
== END 2025-03-15 23:59 | disposition home or self-care (01) ==
PROVIDERS: PCP Family Medicine; Visit Provider Family Medicine
DX: D64.9 Anemia, unspecified; Z79.899 Other long term (current) drug therapy; Z53.9 Procedure and treatment not carried out, unspecified reason
CPT/HCPCS: 96365; J1756; J7050

== ENCOUNTER → 2025-03-12 10:00 | Outpatient (BNVA) | payer MEDICARE, SELFPAY | PROVIDERS: PCP Family Medicine; Visit Provider Family Medicine | DX: D64.9 Anemia, unspecified (principal); D50.8 Other iron deficiency anemias; I50.9 Heart failure, unspecified; Z79.01 Long term (current) use of anticoagulants; I48.20 Chronic atrial fibrillation, unspecified; Z79.4 Long term (current) use of insulin; E11.65 Type 2 diabetes mellitus with hyperglycemia; K92.1 Melena; Z85.038 Personal history of other malignant neoplasm of large intestine; K64.9 Unspecified hemorrhoids | CPT/HCPCS: 80053; 82728; 83550; 85025 ==

== ENCOUNTER → 2025-03-23 08:51 | Outpatient (BNVA) | payer MEDICARE, SELFPAY | PROVIDERS: PCP Family Medicine; Visit Provider Student in an Organized Health Care Education/Training Program | DX: K64.9 Unspecified hemorrhoids (principal); K92.1 Melena; Z85.038 Personal history of other malignant neoplasm of large intestine | CPT/HCPCS: 99204 ==

== ENCOUNTER → 2025-05-07 08:45 | Outpatient (BNVA) | payer MEDICARE, SELFPAY | PROVIDERS: PCP Family Medicine; Visit Provider Family Medicine | DX: E11.65 Type 2 diabetes mellitus with hyperglycemia (principal); Z79.4 Long term (current) use of insulin; D64.89 Other specified anemias; M10.9 Gout, unspecified | CPT/HCPCS: 80053; 82728; 83550; 84550; 85025 ==